=== PATIENT | female | born 1940 | race Caucasian/White ===

== ENCOUNTER 2017-04-13 13:11 | Emergency (ER) | payer MEDICARE, MEDICAID ==
[~2017-04-13] VITALS: Ht 154.9 cm; Wt 68.0 kg
[2017-04-13 14:07] VITALS: BP 124/68
--- NOTE | 2017-04-13 15:57 | NUR ---
Patient ambulated to bed 7 with family. RN evaluating patient at bedside.
--- NOTE | 2017-04-13 16:00 | NUR ---
PT BIB CAREGIVER FOR C/O 05/04 "SHARP" NON RADIATING LEFT LEG PAIN X3 DAYS; PT DENIES ANY FALL OR INJURY; CMS INTACT TO BL LEGS; SKIN IS PINK/WARM/DRY; AAOX4 WITH EVEN AND STEADY GAIT; RR ARE EVEN AND UNLABORED; VSS; PATIENT POSITIONED FOR COMFORT; HOB ELEVATED; BEDRAILS UP X2; BED DOWN. ER MD MADE AWARE OF PT STATUS.
--- NOTE | 2017-04-13 16:09 | NUR ---
Dr. Crowley evaluating patient at bedside.
[2017-04-13] MEDS ORDERED: KETOROLAC 30 MG/ML VIAL IM ONE (16:20)
[2017-04-13 16:42] VITALS: BP 149/87
--- NOTE | 2017-04-13 16:42 | NUR ---
Patient discharged with v/s stable. Written and verbal after care instructions given and explained. Patient alert, oriented and verbalized understanding of instructions. Ambulatory with by caregiver. All questions addressed prior to discharge. ID band removed. Patient advised to follow up with PMD. Rx of NAPROXEN given. Patient educated on indication of medication including possible reaction and side effects. Opportunity to ask questions provided and answered.
== END 2017-04-13 16:42 | disposition home or self-care (01) ==
LOC: MED 13:11
DX: M54.42 Lumbago with sciatica, left side (principal); F32.9 Major depressive disorder, single episode, unspecified; F20.9 Schizophrenia, unspecified
CPT/HCPCS: 96372; 99283; J1885

== ENCOUNTER 2019-05-07 12:53 | Emergency (ER) | payer OTHER, MEDICAID ==
[~2019-05-07] VITALS: Ht 157.5 cm; Wt 68.0 kg
--- NOTE | 2019-05-07 12:53 | NUR ---
Patient BIBA BLS, transferred to bed 2. RN evaluating patient at bedside.
[2019-05-07 13:10] VITALS: BP 91/57
--- NOTE | 2019-05-07 13:18 | NUR ---
states, tripped over a down branch onto walkway in garden. denies ko superficial skin tear over left cheek. denies headache or dizziness at this time
[2019-05-07] MEDS ORDERED: OLAN20TA1 PO (13:22)
[2019-05-07] MEDS ORDERED: CITA20TA15 PO (13:22)
[2019-05-07] MEDS ORDERED: BUS5 PO (13:22)
[2019-05-07] MEDS ORDERED: TRAZ-343 PO (13:22)
--- NOTE | 2019-05-07 13:32 | NUR ---
pt face cleaned with 4x4 and cool water---pt tolerated well, stated "it feels like a facial".
[2019-05-07] MEDS ORDERED: NEOMYCIN/POLYMYXIN/BACITRACIN 0.9 GM/1 PKT TP ONE (13:42)
[2019-05-07 15:25] VITALS: BP 137/62
--- NOTE | 2019-05-07 15:30 | NUR ---
Patient discharged with v/s stable. Written and verbal after care instructions given and explained. Patient verbalized understanding. Ambulatory with steady gait. All questions addressed prior to discharge. Advised to follow up with PMD. DR. MEIER ALSO GAVE DISCHARGE INSTRUCTIONS TO CAREGIVER AT BEDSIDE.
== END 2019-05-07 15:30 ==
LOC: MED 12:53
DX: S00.83XA Contusion of other part of head, initial encounter (principal); Z79.899 Other long term (current) drug therapy; Z79.1 Long term (current) use of non-steroidal anti-inflammatories (NSAID); W17.89XA Other fall from one level to another, initial encounter; Y93.89 Activity, other specified; Y92.89 Other specified places as the place of occurrence of the external cause; Y99.8 Other external cause status
CPT/HCPCS: 99283